=== PATIENT | female | born 1980 | race Caucasian/White ===

== ENCOUNTER 2017-01-22 13:49 | Inpatient (IN) | payer OTHER ==
--- NOTE | ~2017-01-22 | PN ---
Unit #: [id number] #: [id number] Patient: CHARLY MARCELINO [id number] [facility] [address] [place] [address] [id number] MR#: [id number] NAME: CHARLY MARCELINO ROOM: P204 Age: 37 Sex: F Admission Date: 01/22/2017 : 1980 Attending Physician: Reginald Shea M.D. Admitting Physician: Shea Olmos PROGRESS NOTES DATE 01/27/2017 DISCUSSION SUBJECTIVE UPDATE This is a 37-year-old white female, who is here with issues of significant benzodiazepine withdraw, and unfortunately overnight and this morning, the patient is continuing to worsen in terms of poor p.o. intake, confusion, nausea and vomiting, tremors, even despite IM Phenergan. The patient is continuing to deteriorate, per staff the patient's vital signs started to drop. She was starting to become lethargic and it was felt necessary for the patient to be sent out for medical evaluation. The patient is not present at this time for [id number] evaluation. MENTAL STATUS EXAMINATION Not able to be performed. RECOMMENDATIONS The patient has taken by ambulance for medical review to local emergency room awaiting final disposition and for decisions of care here. Unfortunately, the patient's detox from benzodiazepines has worsened to the point where she is starting to show signs of being compromised and hence medical evaluation and clearance needed. Dictated by... Shea Olmos/rhianna TD: 01/28/2017 09:47 JOB #: [id number] Unit #: [id number] #: [id number] Patient: CHARLY MARCELINO PROGRESS NOTES Page 1 of 1 X Reginald Shea MD X PROGRESS NOTE
--- NOTE | ~2017-01-22 | PA ---
Unit #: [id number] #: [id number] Patient: CHARLY MARCELINO [id number] [place] [address] [id number] I MR#: [id number] NAME: CHARLY MARCELINO ROOM: P207 Age: 37 Sex: F Admission Date: 01/22/2017 : 1980 Date of Assessment: 01/23/2017 Attending Physician: Reginald Shea M.D. Admitting Physician: Reginald Shea M.D. PSYCHIATRIC ASSESSMENT [facility]ATION [facility], [address] [place] [address], room #207, bed #2. DATE OF SERVICE 01/23/2017. INFORMANTS The patient and chart seem fairly reliable, some limitation with the patient though. CHIEF COMPLAINT "I've been using benzos for a long time." HISTORY OF PRESENTING ILLNESS This is a 37-year-old white female with a longstanding history of polysubstance dependency, stretching back many many years, who has been apparently abusing upwards of 20 mg of Xanax a day for the last 6 plus months. She also was intermittently abusing Suboxone. She gets off the street. The patient's presentation was somewhat somnolent and her responsiveness was limited. Much of her speech was either slurred or trailed off. She had be woken frequently. She denied any issues with depression or anxiety, but does have a history of treatment for which she is on Lamictal and Lexapro currently and says that they are doing very well. She has a history of SI, but none now. No history of SI. No overt psychiatric care before now beyond medication from primary care doctor. She does have a therapist, but more detailed information could not be obtained at this point. The patient's overall response to this was somewhat limited. The patient does have a history of significant withdrawals, although she said it has been "many years" since that has been an issue. It was unclear of the severity because of her limited cooperation. PAST PSYCHIATRIC HISTORY Medications from an unknown source. The patient denied any previous psychiatric admissions. Some vague history of SI, but no attempts or plan. No history of HI. No history of even psychosis. FAMILY HISTORY Limited because of the patient's cooperation. SOCIAL HISTORY The patient is single, lives on her own, unemployed but does have children. They live with their father. Unit #: [id number] #: [id number] Patient: CHARLY MARCELINO MEDICAL HISTORY Nothing acute or chronic according to the patient. MEDICATION HISTORY Includes Lamictal 100 mg b.i.d., Lexapro 20 mg daily by mouth, trazodone 100 mg at bedtime, in addition to the detox, which I mentioned in the hospital. ALLERGIES No known drug allergies. SUBSTANCE ABUSE HISTORY As noted above. Unclear about exact history of treatment for severity of withdrawal symptoms. The patient denied any other substances of abuse on a regular basis including alcohol. MENTAL STATUS EXAMINATION General appearance; this is a limitedly groomed white female, appears older than stated age, limited cooperation and responsiveness during interview process, somewhat somnolent on presentation. Speech was generally clear, but brief and some rambling noted in unconscious sedation. Mood was "okay" with a blunted affect. Thought process and content were fairly organized, linear, appropriate, and responsiveness. No active SI, HI, or psychosis. The patient's memory was generally intact with limited evaluation overall. She is alert and oriented x4. Cognitive function seems to be at baseline. Associations were normal. Insight and judgment are limited. ASSETS AND LIABILITIES Assets include previous treatment for chemical dependency, unclear about exact details. Liabilities include limited support, ongoing substance abuse, unemployment. ADMITTING DIAGNOSES 1. Sedative hypnotic dependency with withdrawal. 2. Major depressive disorder, mild. PSYCHIATRIC PLAN Continue the patient's admission for safety and stabilization for high-risk detox issues especially given history of withdrawal before and the shear volume and the lengthy time she has been using Xanax. The patient is a high risk and needs to be monitored closely. Detox plan is in place. We will adjust accordingly as well as maintain her home medications for mood as well as antiseizure prophylaxis with the Lamictal. Treatment goal will be resolution of symptoms in a safe controlled environment with discharge planning most likely require community resources if not residential care if the patient is applicable. ESTIMATED LENGTH OF STAY Approximately 5 days. Dictated by.Alicja Shea M.D. Unit #: [id number] #: [id number] Patient: CHARLY MARCELINO SB/modl TD: 01/23/2017 11:42 JOB #: [id number] PSYCHIATRIC ASSESSMENT Page 1 of 1 X Reginald Shea MD PSYCHIATRIC ASSESSMENT
--- NOTE | ~2017-01-22 | PN ---
Unit #: [id number] #: [id number] Patient: CHARLY MARCELINO [id number] [facility] [address] [place] [address] [id number] I MR#: [id number] NAME: CHARLY MARCELINO ROOM: P207 Age: 37 Sex: F Admission Date: 01/22/2017 : 1980 Attending Physician: Reginald Shea M.D. Admitting Physician: Shea Olmos PROGRESS NOTES SUBJECTIVE UPDATE This is a 37-year-old female with history of ongoing benzodiazepine withdrawal. The patient has had a markedly notable downturn of her symptoms in terms of aches, pains, poor sleep, upset stomach, vomiting, some diarrhea complained by the patient. High anxiety and diaphoresis. Vital signs seems stable at the moment, but the patient notably vomiting when I entered the room and has received IM Phenergan. Much of the patient's progress yesterday seems to have been deteriorated today. MENTAL STATUS EXAMINATION General Appearance: This is a limitedly groomed white female who appears older than stated age. Decreased eye contact today. Positive diaphoresis noted and tremors in upper extremities. Speech was clear but brief. Mood was anxious, dysphoric, with a constricted affect. Thought process and content were grossly organized and linear. No overt evidence of psychosis. The patient denied any SI or HI. The patient's memory was grossly intact. Associations were normal. Cognitive functioning was at baseline. He was alert and oriented x4. Insight and judgment limited. ASSESSMENT AND RECOMMENDATIONS We will continue the patient's admission for ongoing issues with detox symptoms. (1) __ the patient apparently is having a more profound episode today of symptoms as noted above. The patient needs to be monitored closely and carefully for reevaluation and care with detox protocols in place for the patient's safety. Dictated by... Shea Olmos/mark TD: 01/25/2017 11:00 JOB #: [id number] Unit #: [id number] #: [id number] Patient: CHARLY MARCELINO PROGRESS NOTES Page 1 of 1 X Reginald Shea MD PROGRESS NOTE
--- NOTE | ~2017-01-22 | DS ---
Unit #: [id number] #: [id number] Patient: CHARLY MARCELINO [id number] [place] [address] [id number] I MR#: [id number] NAME: CHARLY MARCELINO ROOM: P204 Age: 37 Sex: F Admission Date: 01/22/2017 : 1980 Discharge Date: 01/28/2017 Attending Physician: Reginald Shea M.D. DISCHARGE SUMMARY REASON FOR ADMISSION Benzodiazepine dependency withdrawal DIAGNOSTIC STUDIES PERTINENT LABORATORY DATA: The patient had routine blood work done which included CMP shortly before discharge the patient was noted to have a BUN of 32, creatinine 0.7 from dehydration, potassium slight low at 3.1, total bilirubin at 2.1, direct bilirubin 0.3 and an indirect at 1.8, AST elevated at 44, ALT normal at 37, Alkaline phosphatase normal at 51, lipase normal at 29. The patient had a CBC performed which showed an elevated white count of 14 felt to be stress related, MCV of 78.6 and MCH 25.0. Urine toxicology upon admission was positive for benzos and opiates. Urinalysis was negative except for trace protein, 1+ urobilinogen, 2+ blood, 50 to 100 URBCS1. No other test performed. HOSPITAL COURSE The patient was admitted for safety and stabilization for detox from benzodiazepines. She also had been overusing Suboxone but that was infrequent usage apparently. The patient also has a history of major depressive disorder. The patient was placed on CIWA protocol because of the benzos she was doing 20 mg a day and had been doing it for some time and it was felt that it was the greatest risk of withdrawal. The patient was maintained on her home medications in terms of Lamictal and Lexapro for her mood for which she was doing well with overall. She was also given trazodone 100 mg at nighttime for sleep and was started on ReVia, known as naltrexone, alternative to Suboxone when she was discharged from the hospital so she could seek Vivitrol treatment. Over the course of hospitalization the patient initially appeared very mild at her withdrawal symptoms but about the third day started having significant vomiting tremors, diaphoresis, vital sign instability, aches and pains, sleep disturbance which quickly deteriorated over the next couple of days to the point on 01/27 she had to be sent to [place] for medical clearance because of likely dehydration because she had not ate or drank in two days was vomiting so much she was not able to keep her medications down and was grossly hallucinating. Unfortunately by the time she was sent to [place] her hallucinations and her psychosis were improving but her vital signs were starting to wane and it was felt that she was starting to suffer more from dehydration. Fortunately she went to [place] received fluids, monitoring and was sent back the same day. On the day of discharge the patient was clear and coherent, no delirium, no hallucinations, no confusion. She was fully alert and oriented. She was denying any mood issues. She said she was feeling better and wanted to be discharged. She Unit #: [id number] #: [id number] Patient: CHARLY MARCELINO was planning on following up with her outpatient psychiatrist, therapist and primary care doctor. She wanted to be home with her family as the patient had showed remarkably quick turnaround time and felt that she had gotten past the worst of the withdrawal symptoms and she was appropriate. No suicidal ideation, no homicidal ideation, no other acute signs of impairment at this time. DISCHARGE DIAGNOSES [place] [facility] 1. Sedative hypnotic dependency with withdrawal delirium, resolved. 2. Major depressive disorder recurrent mild. 3. Opioid abuse. DISCHARGE INSTRUCTIONS The patient to go home to family. DISCHARGE MEDICATIONS 1. Lexapro 20 mg daily for depression 2. Lamictal 100 mg twice a day for mood stabilization 3. Naltrexone 50 mg daily for opioid addiction prophylaxis treatment. PROGNOSIS Guarded given the patient's history of noncompliance and substance abuse continuance. CONDITION AT DISCHARGE Improved. DISCHARGE PLAN: The patient to go home the family is noted as well as follow with Dr. Camacho her psychiatrist as well as her therapist and primary doctor is scheduled. DIET AND ACTIVITY Diet is regular. Activity is tolerated with sobriety encouraged. Dictated by... Reginald Shea M.D. LISY/umang TD: 01/28/2017 20:57 JOB #: [id number] DISCHARGE SUMMARY Page 1 of 1 X Reginald Shea MD X DISCHARGE SUMMARY
--- NOTE | ~2017-01-22 | HP ---
Unit #: [id number] #: [id number] Patient: CHARLY MARCELINO [id number] [place] [address] [id number] MR#: [id number] NAME: CHARLY MARCELINO ROOM: P207 Age: 37 Sex: F Admission Date: 01/22/2017 : 1980 Attending Physician: Reginald Shea M.D. Admitting Physician: Reginald Shea M.D. HISTORY AND PHYSICAL HISTORY OF PRESENT ILLNESS Charly is a 37 year old admitted to [address] [place] [address] because of her polysubstance abuse which includes benzodiazepines and Suboxone. PAST MEDICAL HISTORY 1. Long history of illicit substance abuse. 2. History of kidney stones. PAST SURGICAL HISTORY Tubal ligation. ALLERGIES No known drug allergies. SOCIAL HISTORY Smokes 2 packs per day. Drinks alcohol rarely. Admits to using up to 20 mg of benzodiazepine on a daily basis. FAMILY HISTORY Medically noncontributory. REVIEW OF SYSTEMS CONSTITUTIONAL: No fever or chills. HEENT: Denies any sore throat, ear pain or runny nose. CARDIOVASCULAR: Denies chest pain, irregular heart rhythm or palpitations. CHEST: Denies shortness of breath or cough. No hemoptysis. GASTROINTESTINAL: Denies nausea, vomiting, diarrhea or chronic constipation. ENDOCRINE: Denies history of increased thirst or urination. No recent significant weight loss or gain. GENITOURINARY: Denies dysuria, frequency, or hematuria. SKIN: Denies any rashes. HEMATOLOGIC: Denies history of increased bleeding or bruising. MUSCULOSKELETAL: Denies any hot, swollen joints. No generalized muscle pain. NEUROLOGIC: Denies problems with vision or speech. No frequent, severe headaches. No numbness, tingling or weakness in any extremities. Denies loss of bladder or bowel control. CURRENT MEDICATIONS 1. Detox protocol. 2. Lamictal 100 mg b.i.d. 3. Desyrel 100 mg q.h.s. Unit #: [id number] #: [id number] Patient: CHARLY MARCELINO PHYSICAL EXAMINATION GENERAL: Alert, well-nourished, in no apparent distress. VITAL SIGNS: Blood pressure 110/64, heart rate 80, respirations 16, temperature 98.6. WEIGHT: 148. HEIGHT: 5 feet 6 inches. SKIN: Warm and dry without rash or lesion. HEENT: Normocephalic. TMs not viewed. Oral and nasal passages clear. Conjunctivae clear. PERRLA. EOMs intact. NECK: Supple without lymphadenopathy or thyromegaly. HEART: Regular rate and rhythm without murmur. LUNGS: Clear. ABDOMEN: Soft, nontender. : Not done. EXTREMITIES: No evidence of cyanosis, clubbing or edema. Moves all without focal deficit. NEUROLOGICAL: Grossly within normal limits. Cranial Nerves: II: Visual grant are intact. III, IV AND : Extraocular movements are intact. Pupils are equal, round and reactive to light. V: Facial sensation is grossly normal. VII: Facial movements and expression are normal. VIII: Auditory acuity grossly intact. IX, X: Uvula is midline. Phonation is normal. XI: Patient shrugs shoulders and turns head normally. XII: Tongue protrudes in the midline. Sensory and Motor Function: Sensory and motor sensation is grossly normal. Motor: moves all extremities well. Coordination: Gait is normal. Deep Tendon Reflexes: Intact. IMPRESSION Psychiatric admission. RECOMMENDATIONS PSYCHIATRIC: Per psychiatrist. MEDICAL: See no contraindications to participate in facility's activities. MEDICAL PROGNOSIS Good. MEDICAL CONDITION Stable. Dictated by... Marie Glasgow PNiloANilo-Manoj. for Shea Daley/geovanna TD: 01/22/2017 18:42 JOB #: [id number] Unit #: [id number] #: [id number] Patient: CHARLY MARCELINO HISTORY AND PHYSICAL Page 1 of 1 X Marie Glasgow HISTORY AND PHYSICAL
--- NOTE | ~2017-01-22 | PN ---
Unit #: [id number] #: [id number] Patient: CHARLY MARCELINO [id number] [facility] [address] [place] [address] [id number] I MR#: [id number] NAME: CHARLY MARCELINO ROOM: P204 Age: 37 Sex: F Admission Date: 01/22/2017 : 1980 Attending Physician: Reginald Shea M.D. Admitting Physician: Shea Olmos PROGRESS NOTES DATE 01/26/2017 DISCUSSION SUBJECTIVE UPDATE This is a 37-year-old white female, who is in the hospital for ongoing issues with benzodiazepine dependency and withdraw. The patient is having severe symptoms today. The patient is delusional, impaired, wandering into other patient's rooms, still continuing to vomit; however, was calm at the moment I saw her as she had been able to keep down some Ativan. The patient has been vomiting up her medications as recently as this morning so it is unclear in terms of how much she has actually absorbed. Vital signs are starting to elevated but are still controllable at the moment. The patient was completely impaired and had no idea what was happening, thought that people had tried to "humiliate her" and had "knocked her out" which had never occurred. She had told staff, a few minutes before I arrived on the unit, that her father was in the closet. The patient is staring very bizarre and inconsistent way with how she has appeared the last several days. Overall, unfortunately, the patient appears to be decompensating with her withdrawal. MENTAL STATUS EXAMINATION General appearance is a limitedly groomed white female with limited cooperation and responsiveness, poor eye contact. Speech was rambling. Mood was somewhat labile with a blunted affect. Thought process and content were impaired, tangential, disorganized, and no active evidence of SI though. The patient's memory was impaired. She was alert and oriented times self and place. Cognitive function was impaired. Associations were loose. Insight and judgment is impaired. ASSESSMENT AND RECOMMENDATIONS Continue the patient's admission for safety and stabilization. She is still obviously in the midst of a delirium brought on by her benzodiazepine withdrawal. Staff were encouraged to utilize program accordingly and increase Ativan dosage as necessary, and in IM form if emesis continues to be an issue for this patient's compliance. The patient is in non-decisional state at this time and is not appropriate for discharge and she is continuing to decompensate. Will monitor closely with strong consideration for medical clearance if necessary. Unit #: [id number] #: [id number] Patient: CHARLY MARCELINO Dictated by... Shea Olmos/rhianna TD: 01/28/2017 07:12 JOB #: [id number] [facility] PROGRESS NOTES Page 1 of 1 X Reginald Shea MD X PROGRESS NOTE
--- NOTE | ~2017-01-22 | PN ---
Unit #: [id number] #: [id number] Patient: CHARLY MARCELINO [id number] [facility] [address] [place] [address] [id number] I MR#: [id number] NAME: CHARLY MARCELINO ROOM: P207 Age: 37 Sex: F Admission Date: 01/22/2017 : 1980 Attending Physician: Reginald Shea M.D. Admitting Physician: Shea Olmos PROGRESS NOTES DATE 01/24/2017 SUBJECTIVE UPDATE This is a 37-year-old white female here with issues primarily from substance abuse including benzodiazepines. Patient reports feeling better today. She is much more energetic and active and actually going to groups and activities, still on somewhat limited basis. She still seems somewhat tremulous but less diaphoretic and more focused. She reports her mood is better and her energy is better today as well. Overall, patient feels better but still is having those symptoms as noted above. Discussed possibility of naltrexone for craving issues and long-term Vivitrol injection for which she was interested. MENTAL STATUS EXAMINATION General appearance, limited groomed white female appears older than stated age, fairly cooperative, responsive to interview process with improved eye contact today. Speech was clear and coherent with normal prosody. Mood was "better" and with congruent affect. Thought process and content are grossly organized and linear. No overt evidence of psychosis. No SI, no HI reported. Patient's memory was grossly intact. Associations were normal. Cognitive functioning was at baseline. Insight and judgement was improving. Alert and oriented times four. ASSESSMENT/RECOMMENDATIONS Will continue patient's admission for safety and stabilization for ongoing detox risk and needs. Patient's symptoms are improving as noted above but some are still present and need to be monitored closely. However, should progress be maintained, most likely disposition tomorrow with community resources. Will go ahead and start patient on naltrexone today 50 mg daily to help with cravings and aversion needs from her substance abuse. Dictated by... Reginald Shea M.D. LISY/geovanna TD: 01/24/2017 18:01 Unit #: [id number] #: [id number] Patient: CHARLY MARCELINO JOB #: [id number] [facility] PROGRESS NOTES Page 1 of 1 X Reginald Shea MD PROGRESS NOTE
[2017-01-23 09:42] LABS: URINE APPEARANCE CLEAR; URINE BILIRUBIN NEG (NEG); URINE BLOOD NEG (NEG); URINE COLOR DK YELLOW; URINE GLUCOSE NEG (NEG); URINE KETONE NEG (NEG); URINE LEUKOCYTE ESTERASE NEG (NEG); URINE NITRATE NEG (NEG); URINE PH 6.5 (5-8); URINE PROTEIN NEG (NEG); URINE SPECIFIC GRAVITY 1.037 (1.003-1.035)
[2017-01-23 09:49] LABS: BASOPHIL% 0.6 % (0-2.5); EOSINOPHIL# 0.2 X10e3 (0-0.7); EOSINOPHIL% 2.1 % (0.0-7.0); HEMATOCRIT 37.7 % (35.0-45.0); HEMOGLOBIN 11.8 gm/dL (12.0-16.0); LYMPHOCYTE# 2.9 X10e3 (1.0-3.5); MEAN CORPUSCULAR HGB CONC 31.3 g/dL (30-36); MEAN PLATELET VOLUME 9.4 FL (6.5-11.5); MONOCYTE# 0.9 X10e3 (0-1.0); MONOCYTE% 10.9 % (3.0-12.0); NEUTROPHIL# 3.9 X10e3 (1.5-7.1); NEUTROPHIL% 49.4 % (40-75); PLATELET COUNT 226 X10e3 (140-420); RED BLOOD COUNT 4.72 X10e (3.90-5.30); RED CELL DISTRIBUTION WIDTH 15.9 % (11.0-15.5); WHITE BLOOD COUNT 7.8 X10e3 (4.0-10.5)
[2017-01-23 09:50] LABS: DIFF IND NO
[2017-01-23 10:14] LABS: ALBUMIN SERUM 3.5 g/dL (3.5-5.0); BILIRUBIN,TOTAL 1.2 mg/dL (0.2-2.0); BUN/CREATININE RATIO 18.57; CALCIUM SERUM 8.6 mg/dL (8.4-10.2); CREATININE SERUM 0.7 mg/dL (0.6-1.4); GLOM FILT RATE Estimated 111.5 mL/min (>60); POTASSIUM 4.2 mmol/L (3.5-5.1); PROTEIN TOTAL SERUM 5.9 g/dL (6.0-8.3)
[2017-01-23 10:48] LABS: AMPHETAMINE NEG (NEG); BARBITURATES NEG (NEG); BENZODIAZEPINES POS (NEG); COCAINE NEG (NEG); MARIJUANA NEG (NEG); OPIATES POS (NEG); TRICYCLIC ANTIDEPRESSANTS NEG (NEG); U METHADONE NEG (NEG)
== END 2017-01-28 12:50 | disposition home or self-care (01) | DRG 897 ==
LOC: P2S 13:49
PROVIDERS: Psychiatry & Neurology Psychiatry
PROC: HZ2ZZZZ Detoxification Services for Substance Abuse Treatment (ICD-10-PCS; principal; 2017-01-23)
DX: F13.239 Sedative, hypnotic or anxiolytic dependence with withdrawal, unspecified (principal); F33.0 Major depressive disorder, recurrent, mild; F17.210 Nicotine dependence, cigarettes, uncomplicated; Z98.51 Tubal ligation status; Z87.442 Personal history of urinary calculi
CPT/HCPCS: 80053; 80307; 81003; 85025; J2060; J2550

== ENCOUNTER 2017-01-27 14:13 | Emergency (ER) | payer OTHER ==
[2017-01-27 14:11] LABS: BASOPHIL# 0.1 X10e3 (0-0.3); BASOPHIL% 0.8 % (0-2.5); HEMATOCRIT 37.8 % (35.0-45.0); LYMPHOCYTE# 2.1 X10e3 (1.0-3.5); LYMPHOCYTE% 15.3 % (17.0-45.0); MEAN CELL VOLUME 78.6 FL (83-96); MEAN CORPUSCULAR HGB CONC 31.8 g/dL (30-36); MEAN PLATELET VOLUME 8.6 FL (6.5-11.5); MONOCYTE# 1.5 X10e3 (0-1.0); MONOCYTE% 10.6 % (3.0-12.0); NEUTROPHIL# 10.2 X10e3 (1.5-7.1); NEUTROPHIL% 73.3 % (40-75); PLATELET COUNT 269 X10e3 (140-420); RED BLOOD COUNT 4.81 X10e (3.90-5.30); RED CELL DISTRIBUTION WIDTH 15.9 % (11.0-15.5)
[2017-01-27 14:18] LABS: DIFF IND NO
[2017-01-27 14:35] LABS: ALBUMIN SERUM 4.5 g/dL (3.5-5.0); BILIRUBIN, DIRECT 0.3 mg/dL (0.0-0.2); BILIRUBIN,INDIRECT 1.8 mg/dL (0.0-0.9); BILIRUBIN,TOTAL 2.1 mg/dL (0.2-2.0); BUN/CREATININE RATIO 45.71; CALCIUM SERUM 9.2 mg/dL (8.4-10.2); CREATININE SERUM 0.7 mg/dL (0.6-1.4); GLOM FILT RATE Estimated 111.5 mL/min (>60); POTASSIUM 3.1 mmol/L (3.5-5.1); PROTEIN TOTAL SERUM 7.6 g/dL (6.0-8.3)
[2017-01-27 14:58] LABS: URINE SOURCE CLEAN CATCH
[2017-01-27 15:07] LABS: URINE APPEARANCE CLEAR; URINE BLOOD 2+ (NEG); URINE COLOR DK YELLOW; URINE GLUCOSE NEG (NEG); URINE KETONE TRACE (NEG); URINE LEUKOCYTE ESTERASE NEG (NEG); URINE NITRATE NEG (NEG); URINE PROTEIN TRACE (NEG); URINE SPECIFIC GRAVITY 1.031 (1.003-1.035)
[2017-01-27 15:10] LABS: U HYALINE CASTS AUWI 0-2 /[LPF]; URBCS1 AUWI 50-100 /[HPF] (0-2); URINE BACTERIA AUWI NEG (NEGATIVE); URINE SQUAMOUS EPITHELIAL CELL OCC /[HPF]; UWBCS1 AUWI 0-2 (0-5)
[2017-01-27 15:17] LABS: CULTURE INDICATED? NO; URINE BILIRUBIN NEG (NEG)
== END 2017-01-27 18:20 ==
LOC: CED 14:13
PROVIDERS: Emergency Medicine
DX: F11.23 Opioid dependence with withdrawal (principal); R11.2 Nausea with vomiting, unspecified; F17.210 Nicotine dependence, cigarettes, uncomplicated; Z87.442 Personal history of urinary calculi; Z98.51 Tubal ligation status
CPT/HCPCS: 80048; 80076; 81003; 83690; 84703; 85025; 96361; 96374; 96375; 99285; J2405; J2765